=== PATIENT | female | born 1955 | race Caucasian/White ===

== ENCOUNTER 2022-01-03 18:45 | Emergency (ER) | payer MEDICARE, BC ==
[~2022-01-03] VITALS: Ht 175.3 cm; Wt 64.5 kg
[2022-01-03 18:46] VITALS: BP 133/63
== END 2022-01-03 21:22 | disposition home or self-care (01) ==
LOC: M ED 18:45
DX: S83.401A Sprain of unspecified collateral ligament of right knee, initial encounter (principal); W01.0XXA Fall on same level from slipping, tripping and stumbling without subsequent striking against object, initial encounter; Y92.099 Unspecified place in other non-institutional residence as the place of occurrence of the external cause; Z88.5 Allergy status to narcotic agent